=== PATIENT | female | born 1930 | race Caucasian/White ===

== ENCOUNTER → 2017-08-30 | Outpatient (REF) | payer MEDICARE, OTHER ==
[~2017-08-30] MED LIST: ALE70 PO; AMOX-362 PO; ASPI-1471 PO; ASPI-715 PO; ATOR40TA24 PO; BIS10S PR; CEL100 PO; CELE100C79 PO; CEPH-13 PO; CLO75 PO; DESL1TBM7 PO; DONE5TAB29 PO; ENO40I SQ; INDO-23 PO; LISI-362 PO; MET500 PO; METF-411 PO; MOM PO; PER PO; PROM12.546 PO; TOLT4CAP13 PO; TRI05T TP; VALS-25 PO; VALS1TAB79 PO; VALS1TAB80 PO
== END ==
LOC: ZZSTITCHES 11:13
PROVIDERS: ATTEND Physician Assistant
DX: L03.032 Cellulitis of left toe (principal)
CPT/HCPCS: 87070

== ENCOUNTER 2017-09-16 17:31 | Emergency (ER) | payer MEDICARE, OTHER ==
[2017-09-16] MEDS ORDERED: NS(*) 0.9% 500 ML BAG 500 ML IV ONE (17:48)
[2017-09-16] MEDS ORDERED: ONDANSETRON 4 MG/2 ML VIAL IVP ONE (17:50)
[2017-09-16] MEDS ORDERED: LISI20TA29 PO (17:53)
[2017-09-16] MEDS ORDERED: FEXO1TAB60 PO (17:53)
[2017-09-16 18:01] LABS: PLATELET COUNT, AUTOMATED 212 K/uL (150-450)
--- NOTE | 2017-09-16 18:21 | EKG ---
[place] [facility] [place] VICENTE YANEZ : [id number] MR: [id number] V: [id number] EXAM DATE: ORDERING PHYSICIAN: ROZ DIAZ TECHNOLOGIST: Test Reason : Blood Pressure : / mmHG Vent. Rate : 078 BPM Atrial Rate : 078 BPM P-R Int : 146 ms QRS Dur : 080 ms QT Int : 364 ms P-R-T Axes : 024 040 116 degrees QTc Int : 414 ms Normal sinus rhythm ST and T changes are non-specific and difficult to read due to baseline variation. Left atrial enlargement. Abnormal ECG When compared with ECG of 20-APR-2015 10:33, T wave inversion now evident in Lateral leads Confirmed by SUNIL TAY ([id number]) on 09/16/2017 9:55:42 PM Referred By: Confirmed By:SUNIL TAY
[2017-09-16] MEDS ORDERED: traMADol 50 MG TAB PO ONE (19:20)
--- NOTE | 2017-09-16 19:20 | ER Report ---
History and Physical Time Seen By MD: 18:28 Hx. of Stated Complaint: DIARRHEA STARTED YESTERDAY, FALL AT HOME LAST NIGHT, NOT EATING OR DRINKING TODAY, LIGHTHEADEDNESS HPI/ROS CHIEF COMPLAINT: Nausea, diarrhea HISTORY OF PRESENT ILLNESS: Patient is a 87-year-old female coming by her daughters, who presents the ED with complaint of diarrhea for the past day. She is also had some intermittent nausea. Daughter state that she has not been eating or drinking well today. They were concerned that she might be dehydrated. Patient has complained of some lightheadedness to them although she denies this now. Patient is quite upset that she is at the emergency department. She states that her daughters forced her to come. Patient has also been having issues with her right great toe for the past month. She has been seen by urgent care twice and podiatry on 3 different occasions. She did have a partial resection of her toenail and now is noted some bruising in the area. Her daughter is asking for some pain medication for this. She has been on Keflex and clindamycin for this toe. She is currently on any antibiotics right now. Patient denies any abdominal pain, vomiting, chest pain, shortness of breath. She did fall yesterday while trying to get into bed and landed on her bilateral legs. She has some bruising but denies any pain. REVIEW OF SYSTEMS: Constitutional: No fever, no chills. Eyes: No discharge. ENT: No sore throat. Cardiovascular: No chest pain, no palpitations. Respiratory: No cough, no shortness of breath. Gastrointestinal: See history of present illness. Genitourinary: No hematuria. Musculoskeletal: No back pain. Skin: No rashes. Neurological: No headache. Allergies: Coded Allergies: Sulfa (Sulfonamide Antibiotics) (Verified Allergy, Intermediate, RASH, ) latex (Verified Allergy, Intermediate, RASH, 09/16/17) allopurinol (Unverified Allergy, Unknown, 09/16/17) Home Meds Reported Medications Fexofenadine/Pseudoephedrine (HONG-D 12 HOUR TABLET) 1 Each Tab.er.12h, 1 TAB PO BID 09/16/17 Lisinopril (LISINOPRIL) 20 Mg Tablet, 20 MG PO QDAY, TAB 09/16/17 Donepezil Hcl (DONEPEZIL HCL) 5 Mg Tablet, 10 MG PO DAILY, #30 08/14/15 Aspirin (ASPIR 81) 81 Mg Tablet.dr, 81 MG PO QDAY, TAB 10/28/13 Discontinued Reported Medications Amoxicillin (AMOXICILLIN) 500 Mg Capsule, 1 CAP PO Q8H, #15 CAPSULE 08/14/15 Discontinued Scripts Amoxicillin (AMOXICILLIN) 500 Mg Capsule, 1 CAP PO Q8H, #30 CAPSULE TAKE ONE CAPSULE BY MOUTH EVERY 8 HOURS Prov:EMMANUELLE ASHFORD MD 08/14/15 Lisinopril (LISINOPRIL) 10 Mg Tablet, 10 MG PO QDAY, #30 TAB Prov:PARISA GRANDE 12/29/14 Celecoxib (CELEBREX) 100 Mg Capsule, 1 CAP PO QDAY, #90 CAPSULE 3 Refills TAKE 1 CAPSULE BY MOUTH TWICE DAILY Prov:BERLIN NAILS MD 10/29/13 Desloratadine/Pseudoephedrine (CLARINEX-D 12 HOUR TABLET) 1 Each Tbmp.12hr, 1 EACH PO DAILY Y for ALLERGY SYMPTOMS, #90 TAB 3 Refills Prov:BERLIN NAILS MD 10/29/13 Reviewed Nurses Notes: Yes Old Medical Records Reviewed: Yes Hx Smoking: No Smoking Status: Never Smoker Exposure to Second Hand Smoke?: No Constitutional Vital Sign - Last 24 Hours 09/16/17 17:42 Temp 97.8 Pulse 90 Resp 16 B/P (MAP) 139/60 Pulse Ox 95 O2 Delivery Room Air Intake and Output 09/16/17 09/16/17 09/17/17 15:00 23:00 07:00 Output Total 30 ml Balance -30 ml Physical Exam General Appearance: The patient is alert, has no immediate need for airway protection and no signs of toxicity. Patient appears to be no acute distress. Eyes: Pupils equal and round no pallor or injection. ENT, Mouth: Mucous membranes are moist. Respiratory: There are no retractions, lungs are clear to auscultation. Cardiovascular: Regular rate and rhythm. Gastrointestinal: Abdomen is soft and non tender, no masses, bowel sounds normal. Neurological: Cranial nerves 2-12 intact. Skin: There is slight swelling and ecchymosis noted of the distal right great toe. There is a partial resection of the toenail noted. No surrounding erythema or erythematous streaking noted. Musculoskeletal: Neck is supple non tender. Extremities are nontender, nonswollen and have full range of motion. DIFFERENTIAL DIAGNOSIS: After history and physical exam differential diagnosis was considered for nausea and diarrhea including gastroenteritis, diverticulitis , sepsis. Medical Decision Making Data Points Result Diagram: 09/16/17 17509/16/17 1750 Laboratory Hematology Test 09/16/17 17:50 09/16/17 18:28 Red Blood Count 5.38 M/uL (4.17-5.56) Mean Corpuscular Volume 90.1 fL (80.0-96.0) Mean Corpuscular Hemoglobin 29.9 pg (26.0-33.0) Mean Corpuscular Hemoglobin Concent 33.2 g/dL (32.0-36.0) Red Cell Distribution Width 14.6 % (11.5-14.5) Mean Platelet Volume 8.4 fL (7.2-11.1) Neutrophils (%) (Auto) 88.9 % (39.4-72.5) Lymphocytes (%) (Auto) 3.3 % (17.6-49.6) Monocytes (%) (Auto) 6.8 % (4.1-12.4) Eosinophils (%) (Auto) 0.5 % (0.4-6.7) Basophils (%) (Auto) 0.5 % (0.3-1.4) Nucleated RBC Relative Count (auto) 0.1 /100WBC Neutrophils # (Auto) 10.7 K/uL (2.0-7.4) Lymphocytes # (Auto) 0.4 K/uL (1.3-3.6) Monocytes # (Auto) 0.8 K/uL (0.3-1.0) Eosinophils # (Auto) 0.1 K/uL (0.0-0.5) Basophils # (Auto) 0.1 K/uL (0.0-0.1) Nucleated RBC Absolute Count (auto) 0.01 K/uL Peripheral Blood Smear Yes Y/N Sodium Level 139 mmol/L (137-145) Potassium Level 3.9 mmol/L (3.5-5.0) Chloride Level 103 mmol/L (98-107) Carbon Dioxide Level 23 mmol/L (22-31) Blood Urea Nitrogen 29 mg/dl (7-18) Creatinine 1.40 mg/dl (0.52-1.04) Glomerular Filtration Rate Calc 35.7 Random Glucose 177 mg/dl (75-110) Calcium Level 9.0 mg/dl (8.4-10.2) Total Bilirubin 0.8 mg/dl (0.2-1.3) Aspartate Amino Transf (AST/SGOT) 28 U/L (0-35) Alanine Aminotransferase (ALT/SGPT) 28 U/L (0-56) Alkaline Phosphatase 103 U/L (0-126) Troponin I < 0.012 ng/ml Total Protein 6.8 g/dl (6.3-8.2) Albumin 3.9 g/dl (3.5-5.0) Lipase 44 U/L (23-300) Urine Color Ene Urine Clarity Cloudy Urine pH 5.0 pH (4.8-9.5) Urine Specific [place] 1.024 Urine Protein 30 mg/dL (NEGATIVE) Urine Glucose (UA) Negative mg/dL (NEGATIVE) Urine Ketones Negative mg/dL (NEGATIVE) Urine Blood Negative (NEGATIVE) Urine Nitrite Negative (NEGATIVE) Urine Bilirubin Small (NEGATIVE) Urine Urobilinogen 2.0 mg/dL (0.2-1.9) Urine Leukocyte Esterase Trace (NEGATIVE) Urine RBC 2 /HPF (0-2/HPF) Urine WBC 12 /HPF (0-5/HPF) Urine Squamous Epithelial Cells Many /LPF (NONE-FEW) Urine Bacteria Negative /HPF (NONE-FEW) Urine Hyaline Casts Few /LPF (NONE-FEW) Urine Mucus Few /HPF (NONE-FEW) Chemistry Test 09/16/17 17:50 09/16/17 18:28 White Blood Count 12.0 k/uL (4.5-11.0) Red Blood Count 5.38 M/uL (4.17-5.56) Hemoglobin 16.1 g/dL (12.0-16.0) Hematocrit 48.5 % (34.0-47.0) Mean Corpuscular Volume 90.1 fL (80.0-96.0) Mean Corpuscular Hemoglobin 29.9 pg (26.0-33.0) Mean Corpuscular Hemoglobin Concent 33.2 g/dL (32.0-36.0) Red Cell Distribution Width 14.6 % (11.5-14.5) Platelet Count 212 K/uL (150-450) Mean Platelet Volume 8.4 fL (7.2-11.1) Neutrophils (%) (Auto) 88.9 % (39.4-72.5) Lymphocytes (%) (Auto) 3.3 % (17.6-49.6) Monocytes (%) (Auto) 6.8 % (4.1-12.4) Eosinophils (%) (Auto) 0.5 % (0.4-6.7) Basophils (%) (Auto) 0.5 % (0.3-1.4) Nucleated RBC Relative Count (auto) 0.1 /100WBC Neutrophils # (Auto) 10.7 K/uL (2.0-7.4) Lymphocytes # (Auto) 0.4 K/uL (1.3-3.6) Monocytes # (Auto) 0.8 K/uL (0.3-1.0) Eosinophils # (Auto) 0.1 K/uL (0.0-0.5) Basophils # (Auto) 0.1 K/uL (0.0-0.1) Nucleated RBC Absolute Count (auto) 0.01 K/uL Peripheral Blood Smear Yes Y/N Glomerular Filtration Rate Calc 35.7 Calcium Level 9.0 mg/dl (8.4-10.2) Total Bilirubin 0.8 mg/dl (0.2-1.3) Aspartate Amino Transf (AST/SGOT) 28 U/L (0-35) Alanine Aminotransferase (ALT/SGPT) 28 U/L (0-56) Alkaline Phosphatase 103 U/L (0-126) Troponin I < 0.012 ng/ml Total Protein 6.8 g/dl (6.3-8.2) Albumin 3.9 g/dl (3.5-5.0) Lipase 44 U/L (23-300) Urine Color Ene Urine Clarity Cloudy Urine pH 5.0 pH (4.8-9.5) Urine Specific [place] 1.024 Urine Protein 30 mg/dL (NEGATIVE) Urine Glucose (UA) Negative mg/dL (NEGATIVE) Urine Ketones Negative mg/dL (NEGATIVE) Urine Blood Negative (NEGATIVE) Urine Nitrite Negative (NEGATIVE) Urine Bilirubin Small (NEGATIVE) Urine Urobilinogen 2.0 mg/dL (0.2-1.9) Urine Leukocyte Esterase Trace (NEGATIVE) Urine RBC 2 /HPF (0-2/HPF) Urine WBC 12 /HPF (0-5/HPF) Urine Squamous Epithelial Cells Many /LPF (NONE-FEW) Urine Bacteria Negative /HPF (NONE-FEW) Urine Hyaline Casts Few /LPF (NONE-FEW) Urine Mucus Few /HPF (NONE-FEW) Urinalysis Test 09/16/17 18:28 Urine Color Ene Urine Clarity Cloudy Urine pH 5.0 pH (4.8-9.5) Urine Specific [place] 1.024 Urine Protein 30 mg/dL (NEGATIVE) Urine Glucose (UA) Negative mg/dL (NEGATIVE) Urine Ketones Negative mg/dL (NEGATIVE) Urine Blood Negative (NEGATIVE) Urine Nitrite Negative (NEGATIVE) Urine Bilirubin Small (NEGATIVE) Urine Urobilinogen 2.0 mg/dL (0.2-1.9) Urine Leukocyte Esterase Trace (NEGATIVE) Urine RBC 2 /HPF (0-2/HPF) Urine WBC 12 /HPF (0-5/HPF) Urine Squamous Epithelial Cells Many /LPF (NONE-FEW) Urine Bacteria Negative /HPF (NONE-FEW) Urine Hyaline Casts Few /LPF (NONE-FEW) Urine Mucus Few /HPF (NONE-FEW) EKG/Imaging EKG Interpretation 12 lead EKG: Rhythm: Normal sinus rhythm, rate 70 bpm [place]: normal QRS: normal ST segments: No acute ST changes identified. Some T-wave inversion in V4 and V5 ED Course/Re-evaluation ED Course Will obtain labs. Patient will be given 500 mL normal saline bolus IV. Will also give her 4 mg IV Zofran. 09/16/2017 7:16:21 pm - discussed all labs with patient and family members. She has some mild leukocytosis but without any abdominal pain. She did have 12 WBCs noted on UA but also has many squamosa epithelial cells likely dirty sample. She does not of any urinary symptoms or fever. Patient has no abdominal pain so CT of abdomen seems to be a necessary at this point. Diarrhea may be infectious or possibly could be related to recent rounds of antibiotics. Advised to follow-up with podiatry regarding her toe. Will prescribe her some tramadol to take for toe pain. She may also take Zofran for nausea. Decision to Disposition Date: Sep 16, 2017 Decision to Disposition Time: 19:18 Depart Departure Latest Vital Signs Vital Signs Date Time Temp Pulse Resp B/P (MAP) Pulse Ox O2 Delivery O2 Flow Rate FiO2 7/28/18 17:42 97.8 90 16 139/60 95 Room Air Impression: Primary Impression: Diarrhea Additional Impressions: Nausea Pain of right great toe Condition: Improved Disposition: HOME OR SELF-CARE Referrals: KASSIE UQIÑONEZ DO (PCP) New Scripts Tramadol Hcl (TRAMADOL HCL) 50 Mg Tablet 50-100 MG PO Q4-6H, #10 TAB Prov: ROZ DIAZ PA-C 09/16/17 Ondansetron (ZOFRAN ODT) 4 Mg Tab.rapdis 4 MG PO Q6H Y for NAUSEA/VOMITING, #8 TAB.MYLES Prov: ROZ DIAZ PA-C 09/16/17 Patient Instructions: Acute Diarrhea (ED) Additional Instructions: Stay well-hydrated. Follow-up with primary care provider in 2-3 days. If having any worsening or concerning symptoms may return to the emergency department. Problem Qualifiers Primary Impression: Diarrhea Diarrhea type: unspecified type Qualified Codes: R19.7 - Diarrhea, unspecified ROZ DIAZ PA-C Sep 16, 2017 19:20
[2017-09-16] MEDS ORDERED: TRAM-420 PO (19:35)
[2017-09-16] MEDS ORDERED: ONDA4TAB PO (19:35)
[2017-09-16 19:40] VITALS: BP 154/65
[2017-09-16] MEDS ORDERED: traMADol 50 MG TAB TH 2 TAB/BOTTLE PO ONE (19:50)
[2017-09-16] MEDS ORDERED: ONDANSETRON 4 MG ODT TH SL ONE (19:50)
== END 2017-09-16 19:58 | disposition home or self-care (01) ==
LOC: ER 17:46
DX: R19.7 Diarrhea, unspecified (principal); R11.0 Nausea; M79.674 Pain in right toe(s); Z79.899 Other long term (current) drug therapy
CPT/HCPCS: 81001; 83690; 84484; 85025; 93005; 96361; 96374; 99283; A4353; A9270; J2405; J7040; Q0162; 82040; 82247; 82310; 82374; 82435; 82565; 82947; 84075; 84132; 84155; 84295; 84450; 84460; 84520; C9399; S0119

== ENCOUNTER 2017-09-17 15:39 | Emergency (ER) | payer MEDICARE, OTHER ==
[2017-09-17] MEDS ORDERED: NS(*) 0.9% 1000 ML BAG 1,000 ML IV ONE ×2 (16:15→18:05)
--- NOTE | 2017-09-17 16:20 | ER Report ---
History and Physical Time Seen By MD: 15:56 Hx. of Stated Complaint: PATIENTS FAMILY STATES PATIENTS N/V HAS GOTTEN WORSE; PT STILL CANT KEEP FLUIDS DOWN HPI/ROS CHIEF COMPLAINT: 1) diarrhea and not tolerating fluids; 2) left lower extremity pain and color change HISTORY OF PRESENT ILLNESS: pt has had multiple episodes watery diarrhea in past day; was seen here last night, since she went home she has had 3 episodes of brown/watery stool the last at 3pm; per daughters, no bloody/black or significant malodor. She is not taking po fluids or food. She is without complaints. Of note, she has discoloration in left lower extremity with l great toe infection that has recently been tx'd with abx (clinda/keflex from apprx aug 29-). She has continued pain in toe; she also has discoloration of l lower leg that daughters say has been intermittent perhaps x 1 yr but worse over last 4 days.Pt ambulates on her own without reported difficulty REVIEW OF SYSTEMS: Constitutional: No fever, no chills. Eyes: No discharge. ENT: No sore throat. Cardiovascular: No chest pain, no palpitations. Respiratory: No cough, no shortness of breath. Gastrointestinal: No abdominal pain, no vomiting. Genitourinary: No hematuria. Musculoskeletal: No back pain. Skin: as above Neurological: No headache. Remainder of the 14 system rev: Yes Allergies: Coded Allergies: Sulfa (Sulfonamide Antibiotics) (Verified Allergy, Intermediate, RASH, ) latex (Verified Allergy, Intermediate, RASH, 09/16/17) allopurinol (Unverified Allergy, Unknown, 09/16/17) Home Meds Active Scripts Tramadol Hcl (TRAMADOL HCL) 50 Mg Tablet, 50-100 MG PO Q4-6H, #10 TAB Prov:ROZ DIAZ PA-C 09/16/17 Ondansetron (ZOFRAN ODT) 4 Mg Tab.rapdis, 4 MG PO Q6H Y for NAUSEA/VOMITING, #8 TAB.MYLES Prov:ROZ DIAZ PA-C 09/16/17 Reported Medications Fexofenadine/Pseudoephedrine (HONG-D 12 HOUR TABLET) 1 Each Tab.er.12h, 1 TAB PO BID 7/28/18 Lisinopril (LISINOPRIL) 20 Mg Tablet, 20 MG PO QDAY, TAB 09/16/17 Donepezil Hcl (DONEPEZIL HCL) 5 Mg Tablet, 10 MG PO DAILY, #30 08/14/15 Aspirin (ASPIR 81) 81 Mg Tablet.dr, 81 MG PO QDAY, TAB 10/28/13 Discontinued Reported Medications Amoxicillin (AMOXICILLIN) 500 Mg Capsule, 1 CAP PO Q8H, #15 CAPSULE 08/14/15 Discontinued Scripts Amoxicillin (AMOXICILLIN) 500 Mg Capsule, 1 CAP PO Q8H, #30 CAPSULE TAKE ONE CAPSULE BY MOUTH EVERY 8 HOURS Prov:EMMANUELLE ASHFORD MD 08/14/15 Lisinopril (LISINOPRIL) 10 Mg Tablet, 10 MG PO QDAY, #30 TAB Prov:PARISA GRANDE 12/29/14 Celecoxib (CELEBREX) 100 Mg Capsule, 1 CAP PO QDAY, #90 CAPSULE 3 Refills TAKE 1 CAPSULE BY MOUTH TWICE DAILY Prov:BERLIN NAILS MD 10/29/13 Desloratadine/Pseudoephedrine (CLARINEX-D 12 HOUR TABLET) 1 Each Tbmp.12hr, 1 EACH PO DAILY Y for ALLERGY SYMPTOMS, #90 TAB 3 Refills Prov:BERLIN NAILS MD 10/29/13 Past Medical/Surgical History TIA, borderline dm, htn and per hx Reviewed Nurses Notes: Yes Old Medical Records Reviewed: Yes Hx Smoking: No Smoking Status: Never Smoker Exposure to Second Hand Smoke?: No Constitutional Vital Sign - Last 24 Hours 09/17/17 09/17/17 09/17/17 09/17/17 15:49 15:53 16:00 16:09 Temp 97.3 Pulse 89 91 Resp 13 22 B/P (MAP) 137/55 (82) 137/55 131/64 (86) Pulse Ox 92 93 O2 Delivery Room Air 09/17/17 09/17/17 09/17/17 09/17/17 16:15 16:30 16:31 16:39 Pulse 88 Resp 13 B/P (MAP) ???/??? (1665) 133/73 (93) Pulse Ox 99 O2 Flow Rate 2.0 09/17/17 09/17/17 09/17/17 16:45 17:00 17:09 Pulse 97 Resp 14 B/P (MAP) 150/63 (92) 152/54 (86) Pulse Ox 100 Physical Exam General Appearance: The patient is alert, has no immediate need for airway protection and no signs of toxicity. [ ] Eyes: Pupils equal and round no pallor or injection. ENT, Mouth: Mucous membranes are moist. Respiratory: There are no retractions, lungs are clear to auscultation. Cardiovascular: Regular rate and rhythm. no m/r/g Gastrointestinal: Abdomen is soft and non tender, no masses, bowel sounds normal. Neurological: alert, oriented x 3, though unclear if she is miinimizing or not aware of symptoms Skin: LLE ecchymosis, cool LLE > R. Unable to palpate or doppler LLE pulses. RLE PT dopplerable (triphasic). Unable to obtain DP Musculoskeletal: Neck is supple non tender. L great toe; appears ischemic at tip, no e/o active celluitis [ ] DIFFERENTIAL DIAGNOSIS: After history and physical exam differential diagnosis was considered for; LLE ischemia/ arterial thrombus c dif, other bact cause diarrhea, sepsis Medical Decision Making Data Points Result Diagram: 09/17/17 1628 09/17/17 1628 Laboratory Hematology Test 09/17/17 16:28 Red Blood Count 5.18 M/uL (4.17-5.56) Mean Corpuscular Volume 89.5 fL (80.0-96.0) Mean Corpuscular Hemoglobin 30.1 pg (26.0-33.0) Mean Corpuscular Hemoglobin Concent 33.7 g/dL (32.0-36.0) Red Cell Distribution Width 14.4 % (11.5-14.5) Mean Platelet Volume 8.9 fL (7.2-11.1) Neutrophils (%) (Auto) 88.4 % (39.4-72.5) Lymphocytes (%) (Auto) 3.1 % (17.6-49.6) Monocytes (%) (Auto) 8.1 % (4.1-12.4) Eosinophils (%) (Auto) 0.1 % (0.4-6.7) Basophils (%) (Auto) 0.3 % (0.3-1.4) Nucleated RBC Relative Count (auto) 0.1 /100WBC Neutrophils # (Auto) 11.2 K/uL (2.0-7.4) Lymphocytes # (Auto) 0.4 K/uL (1.3-3.6) Monocytes # (Auto) 1.0 K/uL (0.3-1.0) Eosinophils # (Auto) 0.0 K/uL (0.0-0.5) Basophils # (Auto) 0.0 K/uL (0.0-0.1) Nucleated RBC Absolute Count (auto) 0.01 K/uL Peripheral Blood Smear Yes Y/N Prothrombin Time 13.3 seconds (12.0-14.4) Prothromb Time International Ratio 1.01 Activated Partial Thromboplast Time 27 seconds (23-35) Sodium Level 137 mmol/L (137-145) Potassium Level 5.0 mmol/L (3.5-5.0) Chloride Level 103 mmol/L (98-107) Carbon Dioxide Level 17 mmol/L (22-31) Blood Urea Nitrogen 46 mg/dl (7-18) Creatinine 2.70 mg/dl (0.52-1.04) Glomerular Filtration Rate Calc 16.7 Random Glucose 164 mg/dl (75-110) Lactate 3.0 mmol/L (0.7-2.1) Calcium Level 8.4 mg/dl (8.4-10.2) Total Bilirubin 0.5 mg/dl (0.2-1.3) Aspartate Amino Transf (AST/SGOT) 34 U/L (0-35) Alanine Aminotransferase (ALT/SGPT) 33 U/L (0-56) Alkaline Phosphatase 84 U/L (0-126) Total Protein 5.8 g/dl (6.3-8.2) Albumin 3.2 g/dl (3.5-5.0) Chemistry Test 09/17/17 16:28 White Blood Count 12.7 k/uL (4.5-11.0) Red Blood Count 5.18 M/uL (4.17-5.56) Hemoglobin 15.6 g/dL (12.0-16.0) Hematocrit 46.3 % (34.0-47.0) Mean Corpuscular Volume 89.5 fL (80.0-96.0) Mean Corpuscular Hemoglobin 30.1 pg (26.0-33.0) Mean Corpuscular Hemoglobin Concent 33.7 g/dL (32.0-36.0) Red Cell Distribution Width 14.4 % (11.5-14.5) Platelet Count 217 K/uL (150-450) Mean Platelet Volume 8.9 fL (7.2-11.1) Neutrophils (%) (Auto) 88.4 % (39.4-72.5) Lymphocytes (%) (Auto) 3.1 % (17.6-49.6) Monocytes (%) (Auto) 8.1 % (4.1-12.4) Eosinophils (%) (Auto) 0.1 % (0.4-6.7) Basophils (%) (Auto) 0.3 % (0.3-1.4) Nucleated RBC Relative Count (auto) 0.1 /100WBC Neutrophils # (Auto) 11.2 K/uL (2.0-7.4) Lymphocytes # (Auto) 0.4 K/uL (1.3-3.6) Monocytes # (Auto) 1.0 K/uL (0.3-1.0) Eosinophils # (Auto) 0.0 K/uL (0.0-0.5) Basophils # (Auto) 0.0 K/uL (0.0-0.1) Nucleated RBC Absolute Count (auto) 0.01 K/uL Peripheral Blood Smear Yes Y/N Prothrombin Time 13.3 seconds (12.0-14.4) Prothromb Time International Ratio 1.01 Activated Partial Thromboplast Time 27 seconds (23-35) Glomerular Filtration Rate Calc 16.7 Lactate 3.0 mmol/L (0.7-2.1) Calcium Level 8.4 mg/dl (8.4-10.2) Total Bilirubin 0.5 mg/dl (0.2-1.3) Aspartate Amino Transf (AST/SGOT) 34 U/L (0-35) Alanine Aminotransferase (ALT/SGPT) 33 U/L (0-56) Alkaline Phosphatase 84 U/L (0-126) Total Protein 5.8 g/dl (6.3-8.2) Albumin 3.2 g/dl (3.5-5.0) Coagulation Test 09/17/17 16:28 Prothrombin Time 13.3 seconds Prothromb Time International Ratio 1.01 Activated Partial Thromboplast Time 27 seconds EKG/Imaging EKG Interpretation 12 lead EKG: Rhythm: normal sinus rhythm [place]: normal QRS: normal ST segments: flipped st i, ii, avf, v4-[address] No st elevation [ ] Monitor Interpretation: Normal Sinus Rhythm ED Course/Re-evaluation ED Course Pt's exam concerning for ischemic LLE; per family this has been intermittently worsening x 1 mo. I ordered arterial us to evaluate for flow; no arterial waveform noted below popliteal; chaya us shows significant clot burden. Will transfer to vascular surgeon for definitive care. I have discussed r/b of heparin, potential surgery at length with pt and family. Dr. Jeronimo at [facility] accepts at cardiac ICU/[facility] Decision to Disposition Date: Sep 17, 2017 Decision to Disposition Time: 18:05 Critical Care Time I spent a total of 65 min of critical care time in obtaining history, performing a physical exam, bedside monitoring of interventions, collecting and interpreting tests and discussion with consultants but not including time spent performing procedures. Depart Departure Latest Vital Signs Vital Signs Date Time Temp Pulse Resp B/P (MAP) Pulse Ox O2 Delivery O2 Flow Rate FiO2 09/17/17 17:09 97 14 100 09/17/17 17:00 152/54 (86) 09/17/17 16:31 2.0 09/17/17 15:53 97.3 Room Air Impression: Primary Impression: Lower limb ischemia Additional Impression: BROOKS (acute kidney injury) Condition: Critical Disposition: XFER TO ACUTE CARE HOSPITAL Referrals: KASSIE QUIÑONEZ DO (PCP) Problem Qualifiers OLYA PHILLIPS MD Sep 17, 2017 16:20
[2017-09-17 16:39] LABS: PLATELET COUNT, AUTOMATED 217 K/uL (150-450)
--- NOTE | 2017-09-17 16:41 | EKG ---
FACILITY: [facility] PATIENT NAME: VICENTE YANEZ : [id number] MR: [id number] V: [id number] EXAM DATE: ORDERING PHYSICIAN: OLYA PHILLIPS TECHNOLOGIST: Test Reason : Blood Pressure : / mmHG Vent. Rate : 089 BPM Atrial Rate : 089 BPM P-R Int : 138 ms QRS Dur : 088 ms QT Int : 336 ms P-R-T Axes : 059 051 220 degrees QTc Int : 408 ms Normal sinus rhythm ST and T wave abnormality, consider inferolateral ischemia Abnormal ECG When compared with ECG of 16-SEP-2017 18:04, T wave inversion now evident in Inferior leads Confirmed by LISA CORTES ([id number]) on 09/17/2017 9:26:47 PM Referred By: Confirmed By:LISA CORTES
[2017-09-17 17:08] LABS: INR 1.01
[2017-09-17] MEDS ORDERED: HEPARIN* SOD/D5W 25000 U/500ML 500 ML IV ONE (18:08)
[2017-09-17] MEDS ORDERED: HEPARIN (PORC) 5000 UN/ML VIAL IVP ONE (18:10)
--- NOTE | 2017-09-17 18:25 | RADIOLOGY IMAGING REPORT ---
FACILITY: [facility] [place] PATIENT NAME: Leatha Rucker : 1930 MR: [id number] V: [id number] EXAM DATE: ORDERING PHYSICIAN: OLYA PHILLIPS TECHNOLOGIST: Location: [facility] [place] Patient: Leatha Rucker : 1930 Visit/Account:[id number] Date of Sevice: 09/17/2017 CHEST SINGLE AP Indication: Shortness of breath.. Comparison: 04/20/2015 Findings: Heart size within normal limits. Calcification within the aortic knob. There is no focal infiltrate or lobar consolidation. Chronic interstitial changes. No pneumothorax or pleural effusion. IMPRESSION: 1. No acute cardiopulmonary process. Report Dictated By: Clint Berumen MD at 09/17/2017 6:20 PM Report E-Signed By: Clint Berumen MD at 09/17/2017 6:21 PM WSN:[id number]
--- NOTE | 2017-09-17 18:31 | RADIOLOGY IMAGING REPORT ---
FACILITY: [facility] PATIENT NAME: Leatha Rucker : 1930 MR: [id number] V: [id number] EXAM DATE: ORDERING PHYSICIAN: OLYA PHILLIPS TECHNOLOGIST: Location: [facility] Patient: Leatha Rucker : 1930 Visit/Account:[id number] Date of Sevice: 09/17/2017 VENOUS DOPP LOW LEFT EXTREMITY HISTORY: Decreased pulses and color changes of the left lower extremity. COMPARISON: None. FINDINGS: Grayscale, duplex and color Doppler interrogation of the left lower extremity deep veins from common femoral vein to proximal calf was completed. The greater saphenous vein in the proximal thigh was ileana luated using similar technique. Common femoral vein - nonocclusive thrombus. Femoral vein - nonocclusive thrombus Deep femoral vein - nonocclusive thrombus Popliteal vein - nonocclusive thrombus Visualized deep calf veins - Occlusive thrombus within the posterior tibial and peroneal veins. Anterior tibial vein is patent. Popliteal fossa: Negative. Greater saphenous vein in the proximal thigh: Nonocclusive thrombus Other: Nonocclusive thrombus within the left iliac vein. 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 Results were discussed with OLYA PHILLIPS at 09/17/2017 6:28 PM. Report Dictated By: Clint Berumen MD at 09/17/2017 6:17 PM Report E-Signed By: Clint Berumen MD at 09/17/2017 6:28 PM WSN:[id number]
--- NOTE | 2017-09-17 18:55 | RADIOLOGY IMAGING REPORT ---
FACILITY: [facility] PATIENT NAME: Leatha Rucker : 1930 MR: [id number] V: [id number] EXAM DATE: ORDERING PHYSICIAN: OLYA PHILLIPS TECHNOLOGIST: Location: [facility] [place] Patient: Leatha Rucker : 1930 Visit/Account:[id number] Date of Sevice: 09/17/2017 Examination: ARTERIAL LOWER EXT LEFT Comparison: DVT ultrasound same day. History: decreased pulses, color change LLE Findings: Standard sonographic evaluation of the left lower extremity arterial system is performed wi color Doppler and spectral analysis. There is extensive echogenic plaque throughout the left common femoral artery and to a lesser extent the superficial femoral artery. Arterial systolic velocity is decreased throughout the left lower extremity with abnormal waveforms i ncluding regions of monophasic flow and high resistance flow. These changes are likely in part due to the extensive DVT throughout the left lower extremity although if there is a clinical concern for ac [place] arterial insufficiency this could be more fully characterized by CTA. No arterial occlusion is identified. IMPRESSION: No left lower extremity arterial occlusion. Please see discussion above. Results were discussed with Dr. Amaya at 09/17/2017 6:50 PM. Report Dictated By: Pedro Luis Hartmann MD at 09/17/2017 6:38 PM Report E-Signed By: Pedro Luis Hartmann MD at 09/17/2017 6:51 PM WSN:[id number]
[2017-09-17 19:30] VITALS: BP 111/65
== END 2017-09-17 19:50 | disposition short-term general hospital (02) ==
LOC: ER 15:49
DX: I99.8 Other disorder of circulatory system (principal); N17.9 Acute kidney failure, unspecified; R19.7 Diarrhea, unspecified; I10 Essential (primary) hypertension; R73.03 Prediabetes; Z86.73 Personal history of transient ischemic attack (TIA), and cerebral infarction without residual deficits
CPT/HCPCS: 71045; 83605; 85025; 85610; 85730; 86850; 86900; 86901; 87040; 93005; 93926; 93971; 96361; 96365; 99291; A4353; J1644; J7030; 82040; 82247; 82310; 82374; 82435; 82565; 82947; 84075; 84132; 84155; 84295; 84450; 84460; 84520

== ENCOUNTER → 2017-09-17 | Outpatient (CLI) | payer MEDICARE, OTHER ==
[~2017-09-17] MED LIST changes: +FEXO1TAB60 PO; +LISI20TA29 PO; +ONDA4TAB PO; +TRAM-420 PO
== END ==
LOC: AMB 19:32
PROVIDERS: ATTEND Nurse Practitioner
DX: I99.8 Other disorder of circulatory system (principal); R53.1 Weakness
CPT/HCPCS: A0425; A0426